=== PATIENT | female | born 1950 | race Caucasian/White ===

== ENCOUNTER 2018-07-12 10:54 | Day surgery (SDC) | payer MEDICARE ==
[~2018-07-12] VITALS: Ht 157.5 cm; Wt 106.9 kg
[~2018-07-12 10:54] MED LIST: ALBU0.63 NEB; ALBU18HF INH; AMOX1TAB61 PO; BUPR-86 PO; BUPR100T11 PO; COLE625T12 PO; FENO130C6 PO; LEVO175T5 PO; LEVO200T5 PO; METF500T17 PO; OMEG1CAP2 PO; OMEP20CA9 PO; OXYGEN INH; PRED-402 PO; SERT100T PO; TRAZ50TA66 PO
[2018-07-12] MEDS ORDERED: SODIUM CHLORIDE 0.9% 1,000 ML IV SCH (11:33)
[2018-07-12 11:34] VITALS: BP 154/89
[2018-07-12] MEDS ORDERED: PLEASE ENTER HEIGHT AND WEIGHT MC SCH (12:00)
[2018-07-12 12:47] LABS: INTERNATIONAL NORMALIZED RATIO 1.02 (0.93-1.1); PROTHROMBIN TIME 10.7 Seconds (9.6-11.5)
[2018-07-12] MEDS ORDERED: NALOXONE 1 MG/ML, 2ML ONE (13:08)
[2018-07-12] MEDS ORDERED: MIDAZOLAM 1 MG/ML, 5ML ONE (13:08)
[2018-07-12] MEDS ORDERED: FENTANYL PF 100 MCG/2ML ONE (13:08)
[2018-07-12] MEDS ORDERED: FLUMAZENIL 0.1 MG/1 ML, 5ML ONE (13:08)
== END 2018-07-12 15:05 | disposition home or self-care (01) ==
LOC: OUT 10:54 → EDSTATUS 12:30 → OUT 15:05
PROVIDERS: ATTEND Internal Medicine Gastroenterology
DX: K75.81 Nonalcoholic steatohepatitis (NASH) (principal); E11.9 Type 2 diabetes mellitus without complications; I10 Essential (primary) hypertension; J43.9 Emphysema, unspecified; Z99.81 Dependence on supplemental oxygen; F32.9 Major depressive disorder, single episode, unspecified; K21.9 Gastro-esophageal reflux disease without esophagitis; E03.9 Hypothyroidism, unspecified; M79.7 Fibromyalgia; G47.33 Obstructive sleep apnea (adult) (pediatric); Z86.14 Personal history of Methicillin resistant Staphylococcus aureus infection; Z90.710 Acquired absence of both cervix and uterus; Z98.890 Other specified postprocedural states; Z79.899 Other long term (current) drug therapy; Z88.8 Allergy status to other drugs, medicaments and biological substances; F12.90 Cannabis use, unspecified, uncomplicated; Z80.0 Family history of malignant neoplasm of digestive organs; E78.5 Hyperlipidemia, unspecified; Z86.010 Personal history of colon polyps; Z79.84 Long term (current) use of oral hypoglycemic drugs
CPT/HCPCS: 47000; 76942; 82962; 85610; 88307; 88313; J2250; J3010; J2310

== ENCOUNTER 2019-10-03 09:55 | Outpatient (CLI) | payer MEDICARE ==
[~2019-10-03 09:55] MED LIST changes: +BUPR300T94 PO; +FENO130C11 PO; -FENO130C6 PO; +FLAX10004 PO; +FLUO40CA2 PO; +HYDROCHLOROTH12.5 MG PO; +TRAV5DRO EACHEYE
[2019-10-03] MEDS ORDERED: OMNIPAQUE 350 MG/ML, 100ML BOTTLE ONE (14:04)
== END 2019-10-03 23:59 | disposition home or self-care (01) ==
LOC: CFH 09:55
PROVIDERS: ATTEND Internal Medicine Gastroenterology
DX: R16.1 Splenomegaly, not elsewhere classified (principal); J84.10 Pulmonary fibrosis, unspecified; J47.9 Bronchiectasis, uncomplicated; K74.69 Other cirrhosis of liver; I10 Essential (primary) hypertension
CPT/HCPCS: 71250; 74170; 82565; Q9967

== ENCOUNTER 2020-03-26 16:15 | Emergency (ER) | payer MEDICARE ==
[~2020-03-26] VITALS: Ht 157.5 cm; Wt 107.5 kg
[~2020-03-26 16:15] MED LIST changes: -FENO130C11 PO; +FENO130C12 PO
--- NOTE | 2020-03-26 16:27 | NUR ---
FAHEEM PATTERSON CELL [phone]
--- NOTE | 2020-03-26 17:07 | NUR ---
PT HAS CO FERNANDEZ AND SOB. BASELINE 3L O2 FROM COPD. PT DENIES CP. STATES SHE FEELS HEART RACING. 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 PT NOT IN RESP DISTRESS. WALKED TO BATHROOM. PROVIDED UA
[2020-03-26 17:17] LABS: MICROSCOPIC NOT IND
[2020-03-26 17:35] LABS: BASOPHILS % (AUTO) 0 % (0-1); EOSINOPHILS % (AUTO) 1 % (1-7); LYMPHOCYTES % (AUTO) 22 % (22-44); MEAN CORPUSCULAR HEMOGLOBIN 29.3 pg (27.0-34.8); MEAN CORPUSCULAR HGB CONC 33.9 g/dL (32.4-35.8); MEAN PLATELET VOLUME 8.3 fL (7.4-10.4); MONOCYTES % (AUTO) 6 % (2-9); NEUTROPHILS % (AUTO) 70 % (42-75); PLATELET COUNT 188 x10^3/uL (130-400); RED BLOOD COUNT 4.22 x10^6/uL (3.82-5.3); RED CELL DISTRIBUTION WIDTH 14.9 % (9.6-15.2)
[2020-03-26 17:38] LABS: ALANINE AMINOTRANSFERASE 44 U/L (12-78); ALBUMIN 3.8 g/dL (3.4-5.0); ANION GAP 6 mmol/L (5-15); CALCIUM 9.5 mg/dL (8.5-10.1); CHLORIDE 102 mmol/L (98-107); CREATININE 1.07 mg/dL (0.55-1.02)
[2020-03-26 17:41] LABS: MD NO
[2020-03-26 17:48] LABS: ALKALINE PHOSPHATASE 228 U/L (45-117); BILIRUBIN,TOTAL 0.6 mg/dL (0.2-1.0); TOTAL PROTEIN 8.3 g/dL (6.4-8.2); TROPONIN I < 0.015 ng/mL (0.000-0.045)
--- NOTE | 2020-03-26 18:19 | NUR ---
PT SWABBED FOR COVID. READY FOR DC
[2020-03-26 18:21] VITALS: BP 145/62
--- NOTE | 2020-03-26 18:42 | NUR ---
Patient/Caregiver given discharge instructions and they have confirmed that they understand the instructions. Patient assisted in wheelchair, family to product picker
== END 2020-03-26 18:42 | disposition home or self-care (01) ==
LOC: ED 16:47
DX: R51.9 Headache, unspecified (principal); Z20.828 Contact with and (suspected) exposure to other viral communicable diseases; R07.89 Other chest pain; J44.9 Chronic obstructive pulmonary disease, unspecified; E11.9 Type 2 diabetes mellitus without complications; E78.00 Pure hypercholesterolemia, unspecified; E03.9 Hypothyroidism, unspecified; I10 Essential (primary) hypertension; R41.0 Disorientation, unspecified
CPT/HCPCS: 36415; 71045; 80053; 81003; 84443; 84484; 85025; 87635; 93005; 99285

== ENCOUNTER → 2020-05-29 | Outpatient (CLI) | payer MEDICARE | END | disposition home or self-care (01) | LOC: CFH 13:07 | PROVIDERS: ATTEND Internal Medicine | DX: J84.10 Pulmonary fibrosis, unspecified (principal); J44.9 Chronic obstructive pulmonary disease, unspecified | CPT/HCPCS: 71250 ==